=== PATIENT | female | born 1955 | race Hispanic/Latino ===

== ENCOUNTER 2017-04-12 13:18 | Emergency (ER) | payer OTHER ==
[2017-04-12 13:29] VITALS: BP 138/75; PULSE 91; RESP 16; TEMP 97.6; O2SAT 98
[2017-04-12] MEDS ORDERED: Lidocaine 1% w Epi 1:100,000 Inj ONE (15:53)
--- NOTE | 2017-04-12 16:12 | CT ---
PROCEDURE: CT HEAD WITHOUT CONTRAST. HISTORY: Left facial/head injury COMPARISON: None available. TECHNIQUE: Axial computed tomography images were obtained through the head/brain without intravenous contrast. Radiation dose: Total exam DLP = mGy-cm. This CT exam was performed using one or more of the following dose reduction techniques: Automated exposure control, adjustment of the mA and/or kV according to patient size, and/or use of iterative reconstruction technique. FINDINGS: HEMORRHAGE: No intracranial hemorrhage. BRAIN: No mass effect or edema. No atrophy or chronic microvascular ischemic changes. VENTRICLES: Unremarkable. No hydrocephalus. CALVARIUM: Unremarkable. PARANASAL SINUSES: Unremarkable as visualized. No significant inflammatory changes. MASTOID AIR CELLS: Unremarkable as visualized. No inflammatory changes. OTHER FINDINGS: None. IMPRESSION: Normal CT of the Head.
--- NOTE | 2017-04-12 16:16 | CT ---
PROCEDURE: CT ORBITS WITHOUT CONTRAST. HISTORY: LEft facial injury COMPARISON: None available. TECHNIQUE: Axial CT images of the orbits were obtained. Coronal and sagittal reformats were generated. Radiation dose: Total exam DLP = mGy-cm. This CT exam was performed using one or more of the following dose reduction techniques: Automated exposure control, adjustment of the mA and/or kV according to patient size, and/or use of iterative reconstruction technique. FINDINGS: RIGHT ORBIT: RIGHT BONY ORBIT: Normal. RIGHT INTRAORBITAL STRUCTURES: Globe: Normal. Extraocular muscles: Normal. Post septal space: Normal. Optic Nerve: Normal. Lacrimal Apparatus: Normal. RIGHT PRESEPTAL SOFT TISSUES: Normal. LEFT ORBIT: LEFT BONY ORBIT: Normal. LEFT INTRAORBITAL STRUCTURES: Globe: Normal. Extraocular muscles: Normal. Post septal space: Normal Optic Nerve: Normal. . Lacrimal Apparatus: Normal. LEFT PRESEPTAL SOFT TISSUES: Mild left periorbital soft tissue swelling. . OTHER: None. IMPRESSION: Mild left periorbital soft tissue swelling.
--- NOTE | 2017-04-12 16:45 | ED PDOC ---
HPI: General Adult Time Seen by Provider: 04/12/17 13:45 Chief Complaint (Nursing): Trauma Chief Complaint (Provider): Head injury - Laceration Past Medical History Vital Signs: Last Vital Signs Temp 97.6 F 04/12/17 13:25 Pulse 91 H 04/12/17 13:25 Resp 16 04/12/17 13:25 BP 138/75 04/12/17 13:25 Pulse Ox 98 04/12/17 13:25 - Medical History PMH: HTN - Allergies Allergies/Adverse Reactions: Allergies Allergy/AdvReac Type Severity Reaction Status Date / Time No Known Allergies Allergy Verified 04/12/17 13:24 - ECG O2 Sat by Pulse Oximetry: 98 Procedures - Laceration/Wound Repair eyebrow Wound Length (cm): 2.5 Wound's Depth, Shape: superficial, linear Wound Explored: clean Anesthesia: Lidocaine w/ Epi Wound Debrided: minimal Wound Repaired With: Sutures Suture Size/Type: 6:0 (#3) Layer Closure?: No Wound Complexity: Simple (La) Laceration - Lateral to eye Wound Length (cm): 2 Wound's Depth, Shape: superficial Wound Explored: clean Betadine Prep?: No Anesthesia: Lidocaine w/ Epi (0.5) Wound Repaired With: Sutures Suture Size/Type: 6:0 (vicryl #2) Disposition - Clinical Impression Clinical Impression: Head injury, Facial laceration - Patient ED Disposition Is Patient to be Admitted: No Counseled Patient/Family Regarding: Diagnosis, Need For Followup - Disposition Disposition: Routine/Home Disposition Time: 16:45 Condition: GOOD Instructions: Laceration Repair, Laceration Repair With Stitches (DC)
[2017-04-12] MEDS ORDERED: Lidocaine 1% w Epi 1:100,000 Inj IJ STA (17:10)
== END 2017-04-12 16:50 | disposition home or self-care (01) ==
LOC: H.ER 13:18
DX: S01.112A Laceration without foreign body of left eyelid and periocular area, initial encounter (principal); X58.XXXA Exposure to other specified factors, initial encounter; I10 Essential (primary) hypertension